=== PATIENT | male | born 1990 ===

== ENCOUNTER 2017-08-16 16:15 | Emergency (ER) | payer SELFPAY ==
[2017-08-16 16:20] VITALS: RESP 18; TEMP 98.2; O2SAT 98
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
[2017-08-16] MEDS ORDERED: Amoxicillin-Clav 875-125 mg Tab PO STA (16:41)
[2017-08-16] MEDS ORDERED: Amoxicillin-Clav 875-125 mg Tab PO ONE (16:44)
[2017-08-16 17:07] VITALS: BP 124/75; PULSE 89
== END 2017-08-16 17:10 | disposition home or self-care (01) ==
LOC: C.ER 16:15
DX: S01.111A Laceration without foreign body of right eyelid and periocular area, initial encounter (principal); W50.3XXA Accidental bite by another person, initial encounter

== ENCOUNTER 2019-02-12 14:37 | Emergency (ER) | payer SELFPAY ==
[2019-02-12 14:46] VITALS: BP 123/70; PULSE 62; RESP 16; TEMP 99.2; O2SAT 98
--- NOTE | 2019-02-12 15:10 | C.PDOC ---
History Of Present Illness 28 y/o male pt presents to the ER c/o cough with chest congestion and yellow sputum for x1 week. Pt reports that mucinex helps his symptoms improve but symptoms returns after medicine wears off. Pt denies fever, chills, SOB or chest pain, difficulty breathing, sore throat, body aches, nausea, vomiting, sick contact, hx of asthma, or smoking. No other complaints at this time. Time Seen by Provider: 02/12/19 14:57 Chief Complaint (Nursing): Cough, Cold, Congestion History Per: Patient History/Exam Limitations: no limitations Onset/Duration Of Symptoms: Days Current Symptoms Are (Timing): Still Present Past Medical History Reviewed: Historical Data, Nursing Documentation, Vital Signs Vital Signs: Last Vital Signs Temp 99.2 F 02/12/19 14:43 Pulse 62 02/12/19 14:43 Resp 16 02/12/19 14:43 BP 123/70 02/12/19 14:43 Pulse Ox 98 02/12/19 14:43 Primary Care Provider: FAMILY PROVIDER,NO - Medical History PMH: No Chronic Diseases Family History: States: Unknown Family Hx - Social History Hx Tobacco Use: No Hx Alcohol Use: Yes Hx Substance Use: No - Immunization History Hx Tetanus Toxoid Vaccination: Yes Hx Influenza Vaccination: No Hx Pneumococcal Vaccination: No Review Of Systems Except As Marked, All Systems Reviewed And Found Negative. Constitutional: Negative for: Fever, Chills, Other (sick contact; hx of asthma or smoking ) ENT: Negative for: Throat Pain Respiratory: Positive for: Cough, Sputum (yellow ) Gastrointestinal: Negative for: Nausea, Vomiting Musculoskeletal: Negative for: Other (body ache ) Physical Exam - Physical Exam Appears: Well, Non-toxic, No Acute Distress Skin: Normal Color, Warm, Dry, No Rash Head: Atraumatic, Normacephalic Eye(s): bilateral: Normal Inspection, EOMI Nose: Normal Oral Mucosa: Moist Throat: Normal, No Erythema, No Exudate Neck: Normal ROM, Supple Chest: Symmetrical Cardiovascular: Rhythm Regular Respiratory: Normal Breath Sounds, No Decreased Breath Sounds, No Rales, No Rhonchi, No Stridor, Wheezing (faint wheeze to the left lung base but clears after coughing. ) Extremity: Normal ROM Neurological/Psych: Oriented x3, Normal Speech Gait: Steady ED Course And Treatment O2 Sat by Pulse Oximetry: 98 (RA) Pulse Ox Interpretation: Normal Medical Decision Making Medical Decision Making: Pt was offered CXR but refuses. Patient is a well appearing 28yo male, nonsmoker, no hx of asthma. Afebrile. Normal O2 saturation. Pt was instructed to come back to the ER if condition worsens or if new sx appears, develops any chest pain, weakness, SOB, difficulty breathing, blood tingued sputum or fevers. Will treat for URI/bronchitis with inhaler and zpak. Will continue over the counter mucinex type medication. Advised follow-up with his PMD as well. Disposition Counseled Patient/Family Regarding: Diagnosis, Need For Followup, Rx Given - Disposition Referrals: FAMILY PROVIDER,NO [Family Provider] - Disposition: HOME/ ROUTINE Disposition Time: 15:07 Condition: GOOD Additional Instructions: Follow-up with your PMD. Return if you develop chest pain, shortness of breath, blood in your phelgm or fevers. Prescriptions: Albuterol HFA [Ventolin HFA 90 mcg/actuation (8 g)] 1 puff IH Q4 #1 puff Azithromycin [Zithromax] 250 mg PO DAILY 5 Days #6 tab Instructions: Upper Respiratory Infection (ED) Forms: [employer] (New Zealander) Print Language: ROMANSH - Clinical Impression Clinical Impression: Upper respiratory infection - PA / SALES SUPPORT REPRESENTATIVE / Resident Statement MD/ has reviewed & agrees with the documentation as recorded. - Scribe Statement The provider has reviewed the documentation as recorded by the Tino Rosado Do All medical record entries made by the Scribe were at my direction and personally dictated by me. I have reviewed the chart and agree that the record accurately reflects my personal performance of the history, physical exam, medical decision making, and the department course for this patient. I have also personally directed, reviewed, and agree with the discharge instructions and disposition.
== END 2019-02-12 15:31 | disposition home or self-care (01) ==
LOC: C.ER 14:37
DX: J06.9 Acute upper respiratory infection, unspecified (principal)